=== PATIENT | female | born 1970 | race Caucasian/White ===

== ENCOUNTER 2017-01-15 18:39 | Emergency (ER) | payer SELFPAY ==
--- NOTE | 2017-01-15 23:41 | ER Document Report ---
ED Animal Bite - General Information source: Patient TRAVEL OUTSIDE OF THE [place] IN LAST 30 DAYS: No - HPI Location of injury: [place] Context of attack: "Unprovoked" attack Type of animal: raccoon Appearance of animal: Unknown Animal's immunizations: Not immunized - General Chief Complaint: Animal Bite Stated Complaint: SCRATCHED BY ANIMAL Time Seen by Provider: 01/15/17 23:14 Notes: Patient is a 46 year old female who presents to the ED with complaints of a small raccoon bite or scratch that patient got last night. Patient states she was sitting outside last night eating with family and a raccoon came up underneath her chair and either bit or scratched her. Patient states she kicked her leg and the raccoon ran away and later returned to the food. Patient denies any bleeding from the area of the wound. Patient states she immediately cleaned the area with alcohol and warm soapy water. Patient is unsure when her last tetanus shot was. Patient is in town on vacation from [place]. (BRANDON CLARK) - Related Data Allergies/Adverse Reactions: No Known Allergies Allergy (Verified 01/15/17 21:30) Home Medications: Current Home Medications Carvedilol [Coreg 6.25 mg Tablet] 1 tab PO BID 01/15/17 [History] Escitalopram Oxalate [Lexapro] 1 tab PO DAILY 01/15/17 [History] Past Medical History - General Information source: Patient - Social History Smoking Status: Never Smoker Chew tobacco use (# tins/day): No Frequency of alcohol use: None Drug Abuse: None Family History: Reviewed & Not Pertinent - Past Medical History Cardiac Medical History: Reports: Hx Hypertension Renal/ Medical History: Denies: Hx Peritoneal Dialysis Psychiatric Medical History: Reports: Hx Depression Past Surgical History: Reports: Hx Cholecystectomy - Immunizations Hx Diphtheria, Pertussis, Tetanus Vaccination: No Review of Systems - Review of Systems Constitutional: No symptoms reported EENT: No symptoms reported Cardiovascular: No symptoms reported Respiratory: No symptoms reported Gastrointestinal: No symptoms reported Genitourinary: No symptoms reported Female Genitourinary: No symptoms reported Musculoskeletal: No symptoms reported Skin: No symptoms reported Hematologic/Lymphatic: See HPI, Other - animal scratch or bite Neurological/Psychological: No symptoms reported Physical Exam - General General appearance: Appears well, Alert In distress: None - HEENT Head: Normocephalic, Atraumatic Eyes: Normal Extraocular movements intact: Yes Pupils: PERRL - Respiratory Respiratory status: No respiratory distress Breath sounds: Normal - Cardiovascular Rhythm: Regular Heart sounds: Normal auscultation Murmur: No - Back Back: Normal - Extremities General upper extremity: Normal inspection General lower extremity: Other - 3 mm scratch left anterior leg, very narrow - Neurological Neuro grossly intact: Yes - Psychological Associated symptoms: Normal affect, Normal mood - Skin Skin Temperature: Warm Skin Moisture: Dry Skin Color: Normal Skin irregularity: other - 3 mm scratch left anterior leg, very narrow Course - Re-evaluation Re-evalutation: 01/16/17 00:36 The patient's history suggests that the raccoon was scared off, and only returned when there were no people around guarding the food scraps. The wound is a linear almost razor like appearance and an attempted bite cannot be excluded based on this. The patient prefers to get the rabies immunoglobulin and vaccine series rather than take a chance on the unknown condition of the raccoon. The first half of the rabies immunoglobulin was administered in the right gluteal region, and the rabies vaccine was placed in the deltoid muscle. She is also given a Tdap injection. The left anterior leg skin was prepped with alcohol wipe around the area of the scratch. This area was then infiltrated with half of the rabies immune globulin dose. (ELÍAS PITTS) - Vital Signs Vital signs: Temp Pulse Resp BP Pulse Ox 97.9 F 66 18 155/95 H 99 01/16/17 00:39 01/16/17 00:39 01/16/17 00:39 01/16/17 00:39 01/16/17 00:39 Discharge - Discharge Clinical Impression: Bitten by raccoon, initial encounter Qualifiers: Encounter type: initial encounter Qualified Code(s): W55.51XA - Bitten by raccoon, initial encounter Condition: Stable Disposition: HOME, SELF-CARE Additional Instructions: Rabies Prophyllaxis: Rabies immunization can prevent infection with the rabies virus. This virus is always fatal if it reaches the nervous system. Exposure to an infected animal's saliva requires a series of shots. If you're already immunized, you may need only a booster shot. It's critical for you to follow the exact schedule of immunizations. After the first shot, we give repeat doses in 3 days, 7 days, 14 days, and 28 days. The repeat doses can also be given through the Health Department or by special arrangement with your doctor. Ibuprofen or acetaminophen can be used for aching and swelling at the injection site. Call the doctor or return if you develop increasing pain, fever , chills, or spreading redness, or if you become short of breath or faint. The CDC recommends to get the rabies vaccine on day 0, 3, 7, and 14. This means you should get the vaccine on 01/18/17, 01/22/17 and 01/29/17. Return to the emergency room for these injections. Jose Eibe Attestation: 01/16/17 00:42 I personally performed the services described in the documentation, reviewed and edited the documentation which was dictated to the scribe in my presence, and it accurately records my words and actions. (ELÍAS PITTS) Scribe Documentation - Scribe Written by Enedelia:: enedelia Ghosh, 01/15/2017, 1609 acting as scribe for :: Rena
[2017-01-15] MEDS ORDERED: RABIES IMMUNE GLOBULIN INJ/PF 300 UNIT/2 ML SDV IM ONE ×2 (23:47→23:50)
[2017-01-15] MEDS ORDERED: RABIES VACCINE (PCEC)/PF 2.5 UNIT/1 ML KIT IM ONE (23:49)
[2017-01-15] MEDS ORDERED: DIPH/PERTUSS(ACELL)/TETANUS VAC/PF 0.5 ML SYR (>=10YO) IM ONE (23:52)
[2017-01-16 00:41] VITALS: BP 155/95
== END 2017-01-16 00:50 | disposition home or self-care (01) ==
LOC: ER 18:39
DX: S80.812A Abrasion, left lower leg, initial encounter (principal); W55.51XA Bitten by raccoon, initial encounter; I10 Essential (primary) hypertension; Z90.49 Acquired absence of other specified parts of digestive tract; Z23 Encounter for immunization
CPT/HCPCS: 90376; 90471; 90675; 90715; 96372; 99283